=== PATIENT | female | born 1985 | race Hispanic/Latino ===

== ENCOUNTER 2019-08-14 04:02 | Emergency (ER) | payer SELFPAY ==
[~2019-08-14] VITALS: Ht 157.5 cm; Wt 95.3 kg
[2019-08-14] MEDS ORDERED: KETOROLAC TROMETHAMINE 30 MG/ML VIAL IV STA (04:26)
[2019-08-14] MEDS ORDERED: DIAZEPAM INJ 5 MG/ML 2 ML IM ONE (04:30)
[2019-08-14] MEDS ORDERED: KETOROLAC TROMETHAMINE 60 MG/2 ML VIAL IM ONE (04:30)
[2019-08-14] MEDS ORDERED: MORPHINE SULFATE 5 MG/ML VIAL IV STA (05:23)
--- NOTE | 2019-08-14 05:51 | NUR ---
pt is able to get into bed with out assisstance
--- NOTE | 2019-08-14 06:00 | Diagnostic Imaging Report ---
EXAM: CT Abdomen and Pelvis WITHOUT contrast INDICATION: Lower back pain x2 days COMPARISON: None. TECHNIQUE: Abdomen and pelvis were scanned utilizing a multidetector helical scanner from the lung base to the pubic symphysis without administration of IV contrast. Absence of intravenous contrast decreases sensitivity for detection of focal lesions and vascular pathology. Coronal and sagittal reformations were obtained. Routine protocol was performed. IV CONTRAST: None ORAL CONTRAST: None COMPLICATIONS: None RADIATION DOSE: Total DLP: 771 mGy*cm Estimated effective dose: (DLP x 0.015 x size factor) mSv CTDIvol has been reviewed. It is below the limits set by the Radiation Protocol Committee (RPC). Dose modulation, iterative reconstruction, and/or weight based adjustment of the mA/kV was utilized to reduce the radiation dose to as low as reasonably achievable. FINDINGS: LINES and TUBES: None. LOWER THORAX: Friction scarring in the basal medial right lower lobe. HEPATOBILIARY: No focal hepatic lesions. No biliary ductal dilation. GALLBLADDER: There are cholecystectomy clips. SPLEEN: No splenomegaly. PANCREAS: No focal masses or ductal dilatation. ADRENALS: No adrenal nodules KIDNEYS/URETERS: No hydronephrosis. No cystic or solid mass lesions. No stones. GI TRACT: No abnormal distention, wall thickening, or evidence of bowel obstruction. Appendix is normal. PELVIC ORGANS/BLADDER: Mild circumferential bladder wall thickening and trace perivesicular fat stranding. Tubal ligation clips in place. LYMPH NODES: No lymphadenopathy. VESSELS: Unremarkable. PERITONEUM / RETROPERITONEUM: No free air or fluid. BONES: Mild degenerative changes in the lower thoracic spine. SOFT TISSUES: There is a fat containing para-umbilical hernia. IMPRESSION: Urinary bladder findings can be seen with cystitis. Signed by: Masoud Atkinson DO on 08/14/2019 5:57 AM
[2019-08-14] MEDS ORDERED: MORPHINE SULFATE INJ 4 MG/ML INJ 1ML ONE (06:05)
[2019-08-14 06:21] VITALS: BP 124/74
[2019-08-14] MEDS ORDERED: DIAZEPAM INJ 5 MG/ML 2 ML ONE (07:28)
[2019-08-14] MEDS ORDERED: KETOROLAC TROMETHAMINE 60 MG/2 ML VIAL ONE (07:28)
--- OUTSIDE RECORDS SUMMARY | 2019-08-14 07:33 | XMS REPORT ---
[facility] Address Unknown Phone Unavailable Care Team Providers Care First Aid Director Name Role Phone DAYRON BARBARA Unavailable Unavailable Problems This patient has no known problems. Allergies, Adverse Reactions, Alerts This patient has no known allergies or adverse reactions. Medications This patient has no known medications. Results Test Description Test Time Test Comments Text Results Atomic Results Result Comments CT ABD/PEL WO CONTRAST-HOPD 2019-08-14 05:52:00 [place] [address] Patient Name: SAMIR MONTAGUE MR #: [id number] : 1985 Age/Sex: 34/F Req #: [id number] Adm Physician: Ordered by: BARBARA PADGETT DO Report #: [id number] Location: [facility] Room/Bed: Procedure: [id number] HOPD/CT ABD/PEL WO CONTRAST-HOPD Exam Date: 08/14/19 Exam Time: 0531 REPORT STATUS: Signed EXAM: CT Abdomen and Pelvis WITHOUT contrast INDICATION: Lower back pain x2 days COMPARISON: None. TECHNIQUE: Abdomen and pelvis were scanned utilizing a multidetector helical scanner from the lung base to the pubic symphysis without administration of IV contrast. Absence of intravenous contrast decreases sensitivity for detection of focal lesions and vascular pathology. Coronal and sagittal reformations were obtained. Routine protocol was performed. IV CONTRAST: None ORAL CONTRAST: None COMPLICATIONS: None RADIATION DOSE: Total DLP: 771 mGy*cm Estimated effective dose: (DLP x 0.015 x size factor) mSv CTDIvol has been reviewed. It is below the limits set by the Radiation Protocol Committee (RPC). Dose modulation, iterative reconstruction, and/or weight based adjustment of the mA/kV was utilized to reduce the radiation dose to as low as reasonably achievable. FINDINGS: LINES and TUBES: None. LOWER THORAX: Friction scarring in the basal medial right lower lobe. HEPATOBILIARY: No focal hepatic lesions. No biliary ductal dilation. GALLBLADDER: There are cholecystectomy clips. SPLEEN: No splenomegaly. PANCREAS: No focal masses or ductal dilatation. ADRENALS: No adrenal nodules KIDNEYS/URETERS: No hydronephrosis. No cystic or solid mass lesions. No stones. GI TRACT: No abnormal distention, wall thickening, or evidence of bowel obstruction. Appendix is normal. PELVIC ORGANS/BLADDER: Mild circumferential bladder wall thickening and trace perivesicular fat stranding. Tubal ligation clips in place. LYMPH NODES: No lymphadenopathy. VESSELS: Unremarkable. PERITONEUM / RETROPERITONEUM: No free air or fluid. BONES: Mild degenerative changes in the lower thoracic spine. SOFT TISSUES: There is a fat containing para-umbilical hernia. IMPRESSION: Urinary bladder findings can be seen with cystitis. Signed by: Masoud Atkinson DO on 08/14/2019 5:57 AM Dictated By: MASOUD ATKINSON DO 6 Transcribed By: SUSIE on 08/14/19556 COPY TO: BARBARA PADGETT DO
== END 2019-08-14 06:54 | disposition home or self-care (01) ==
LOC: FSED 04:02
DX: M54.5 Low back pain (principal); R10.9 Unspecified abdominal pain
CPT/HCPCS: 74176; 81003; 81025; 96372; 99283; J1885; J2270; J3360